=== PATIENT | male | born 1965 | race African-American/Black ===

== ENCOUNTER 2019-06-05 22:15 | Emergency (ER) | payer OTHER ==
[~2019-06-05] VITALS: Ht 185.4 cm; Wt 100.0 kg
[2019-06-05] MEDS ORDERED: ACETAMINOPHEN 500 MG TABLET PO ONE (22:45)
[2019-06-05] MEDS ORDERED: IBUPROFEN 600 MG TABLET PO ONE (22:45)
[2019-06-06 00:02] VITALS: BP 132/86
== END 2019-06-06 00:19 | disposition home or self-care (01) ==
LOC: EDBD → EMS 22:17 → EDBD 22:17 → EMS 06-06 00:19
DX: N50.811 Right testicular pain (principal); N50.812 Left testicular pain; I10 Essential (primary) hypertension; F17.210 Nicotine dependence, cigarettes, uncomplicated
CPT/HCPCS: 76870; 99406

== ENCOUNTER 2019-06-22 01:54 | Inpatient (IN) | payer OTHER ==
[~2019-06-22] VITALS: Ht 190.5 cm; Wt 95.5 kg
[~2019-06-22 01:54] MED LIST: NITROGLYCERIN 0.4 MG SUBLINGUAL TABLET #25 SL ONE
[2019-06-22 02:40] LABS: BASOPHILS % (AUTO) 1.9 % (0.0-2.0); EOSINOPHILS % (AUTO) 4.4 % (1.0-6.0); HEMATOCRIT 42.4 % (41-53); HEMOGLOBIN 13.9 g/dL (13.5-17.5); LYMPHOCYTES % (AUTO) 40.2 % (22.0-44.0); MEAN CORPUSCULAR HEMOGLOBIN 27.1 pg (26.0-34.0); MEAN CORPUSCULAR HGB CONC 32.7 G/dL (31.0-37.0); MEAN CORPUSCULAR VOLUME 83 fL (80-100); MONOCYTES # (AUTO) 0.4 K/uL (0.1-1.0); NEUTROPHILS # (AUTO) 2.2 K/uL (1.8-7.7); NEUTROPHILS % (AUTO) 44.5 % (40.0-70.0); PLATELET COUNT (AUTO) 344 K/uL (150-450); RED CELL DISTRIBUTION WIDTH 14.1 % (11.5-14.5)
[2019-06-22 02:46] LABS: ANION GAP 7 mmol/L (8-16); CALCIUM, TOTAL 8.7 mg/dL (8.8-10.5); CARBON DIOXIDE 28 mmol/L (22-29); CHLORIDE 103 mmol/L (98-107); CREATININE 1.21 mg/dL (0.60-1.30); GLOMERULAR FILTR. RATE CALC > 60 mL/min (>60); GLUCOSE,RANDOM 96 mg/dL (70-110); POTASSIUM 3.8 mmol/L (3.5-5.1); SODIUM SERUM 138 mmol/L (136-145); UREA NITROGEN, BLOOD 17 mg/dL (7-18)
[2019-06-22 02:47] LABS: PROTHROMBIN TIME 10.4 SEC (9.4-11.6)
[2019-06-22 02:57] LABS: B-TYPE NATRIURETIC PEPTIDE 9 pg/mL (0-100)
[2019-06-22 03:09] LABS: ALANINE AMINOTRANSFERASE 25 U/L (12-78); ALBUMIN 3.8 g/dL (3.4-5.0); ALKALINE PHOSPHATASE 84 U/L (46-116); ASPARTATE AMINOTRANSFERASE 24 U/L (15-37); BILIRUBIN,TOTAL 0.3 mg/dL (0.1-1.0); CREATINE KINASE, TOTAL ONLY 612 U/L (39-308); TOTAL PROTEIN, SERUM 7.3 g/dL (6.4-8.2)
[2019-06-22] MEDS ORDERED: ONDANSETRON HCL 4 MG/2 ML VIAL IVP PRN ×2 (03:45→08:00)
[2019-06-22] MEDS ORDERED: NITROGLYCERIN 2% (1 GM=INCH) PACKET TP ONE (03:45)
[2019-06-22] MEDS ORDERED: ACETAMINOPHEN 325 MG TABLET PO PRN ×2 (03:45→08:00)
[2019-06-22 07:21] VITALS: BP 169/88
[2019-06-22] MEDS ORDERED: HEPARIN SODIUM,PORCINE 5,000 UNITS/ML VIAL SQ SCH (08:00)
[2019-06-22] MEDS ORDERED: HYDROCODONE/ACETAMINOPHEN 5-325 MG TABLET PO PRN (08:00)
[2019-06-22] MEDS ORDERED: MAGNESIUM HYDROXIDE SUSPENSION 30 ML UDCUP PO PRN (08:00)
[2019-06-22] MEDS ORDERED: BISACODYL 10 MG RECTAL RECTAL SUPPOSITORY PR PRN (08:00)
[2019-06-22] MEDS ORDERED: MORPHINE SULFATE 2 MG/ML SYRINGE IVP PRN (08:00)
[2019-06-22] MEDS ORDERED: ZOLPIDEM TARTRATE 5 MG TABLET PO PRN (08:00)
[2019-06-22] MEDS ORDERED: DOCUSATE SODIUM 100 MG CAPSULE PO SCH (09:00)
[2019-06-22] MEDS ORDERED: ASPIRIN 81 MG CHEWABLE TABLET PO SCH (09:00)
[2019-06-22] MEDS ORDERED: PANTOPRAZOLE SODIUM 40 MG DR TABLET PO SCH (09:00)
[2019-06-22] MEDS ORDERED: [UNRECOGNIZED DRUG - REMARK] PO (22:19)
== END 2019-06-22 08:20 | disposition left against medical advice (07) | DRG 198 ==
LOC: EMS 01:55 → 5N 05:08
PROVIDERS: ADMIT Internal Medicine; ATTEND Internal Medicine
DX: I24.9 Acute ischemic heart disease, unspecified (principal); F17.210 Nicotine dependence, cigarettes, uncomplicated; I10 Essential (primary) hypertension; Z53.29 Procedure and treatment not carried out because of patient's decision for other reasons; Z82.49 Family history of ischemic heart disease and other diseases of the circulatory system; Z87.442 Personal history of urinary calculi; Z93.3 Colostomy status
CPT/HCPCS: 93005

== ENCOUNTER 2019-06-22 21:55 | Emergency (ER) | payer OTHER ==
[~2019-06-22] VITALS: Ht 190.5 cm; Wt 95.5 kg
[2019-06-22] MEDS ORDERED: [UNRECOGNIZED DRUG - REMARK] PO (22:19)
[2019-06-22 23:14] LABS: BASOPHILS % (AUTO) 1.5 % (0.0-2.0); EOSINOPHILS % (AUTO) 3.4 % (1.0-6.0); HEMATOCRIT 39.4 % (41-53); HEMOGLOBIN 12.9 g/dL (13.5-17.5); LYMPHOCYTES # (AUTO) 1.7 K/uL (1.0-4.8); LYMPHOCYTES % (AUTO) 33.8 % (22.0-44.0); MEAN CORPUSCULAR HEMOGLOBIN 26.9 pg (26.0-34.0); MEAN CORPUSCULAR HGB CONC 32.7 G/dL (31.0-37.0); MEAN CORPUSCULAR VOLUME 82 fL (80-100); MONOCYTES # (AUTO) 0.3 K/uL (0.1-1.0); MONOCYTES % (AUTO) 5.9 % (2.0-9.0); NEUTROPHILS # (AUTO) 2.9 K/uL (1.8-7.7); NEUTROPHILS % (AUTO) 55.4 % (40.0-70.0); PLATELET COUNT (AUTO) 358 K/uL (150-450); RED BLOOD CELL COUNT(AUTO) 4.79 MIL/uL (4.50-5.90); RED CELL DISTRIBUTION WIDTH 14.4 % (11.5-14.5)
[2019-06-22 23:32] LABS: ANION GAP 8 mmol/L (8-16); CALCIUM, TOTAL 8.9 mg/dL (8.8-10.5); CARBON DIOXIDE 27 mmol/L (22-29); CHLORIDE 102 mmol/L (98-107); CREATININE 1.32 mg/dL (0.60-1.30); GLOMERULAR FILTR. RATE CALC > 60 mL/min (>60); GLUCOSE,RANDOM 104 mg/dL (70-110); POTASSIUM 3.7 mmol/L (3.5-5.1); SODIUM SERUM 137 mmol/L (136-145); UREA NITROGEN, BLOOD 14 mg/dL (7-18)
[2019-06-22 23:37] LABS: ALANINE AMINOTRANSFERASE 23 U/L (12-78); ALBUMIN 3.8 g/dL (3.4-5.0); ALKALINE PHOSPHATASE 79 U/L (46-116); ASPARTATE AMINOTRANSFERASE 20 U/L (15-37); BILIRUBIN,TOTAL 0.2 mg/dL (0.1-1.0); TOTAL PROTEIN, SERUM 7.1 g/dL (6.4-8.2)
[2019-06-22 23:45] VITALS: BP 195/121
== END 2019-06-23 00:02 | disposition home or self-care (01) ==
LOC: EMS 21:57
DX: R07.89 Other chest pain (principal); I10 Essential (primary) hypertension; F17.210 Nicotine dependence, cigarettes, uncomplicated; Z98.890 Other specified postprocedural states; Z79.899 Other long term (current) drug therapy
CPT/HCPCS: 93005; 99406

== ENCOUNTER 2019-06-23 06:38 | Emergency (ER) | payer SELFPAY ==
[~2019-06-23] VITALS: Ht 190.5 cm; Wt 95.5 kg
[~2019-06-23 06:38] MED LIST changes: -NITROGLYCERIN 0.4 MG SUBLINGUAL TABLET #25 SL ONE; +[UNRECOGNIZED DRUG - REMARK] PO
[2019-06-23 06:50] VITALS: BP 164/101
== END 2019-06-23 08:28 | disposition left against medical advice (07) ==
LOC: EMS 06:38
DX: R07.9 Chest pain, unspecified (principal); Z53.21 Procedure and treatment not carried out due to patient leaving prior to being seen by health care provider

== ENCOUNTER 2019-06-25 15:10 | Emergency (ER) | payer OTHER ==
[~2019-06-25] VITALS: Ht 190.5 cm; Wt 95.5 kg
[2019-06-25] MEDS ORDERED: [UNRECOGNIZED DRUG - REMARK] PO (15:17)
[2019-06-25] MEDS ORDERED: ASPIRIN 81 MG CHEWABLE TABLET PO ONE (16:00)
[2019-06-25 16:27] LABS: HEMOGLOBIN 14.2 g/dL (13.5-17.5); MEAN CORPUSCULAR HEMOGLOBIN 26.6 pg (26.0-34.0); MONOCYTES # (AUTO) 0.4 K/uL (0.1-1.0); NEUTROPHILS # (AUTO) 3.4 K/uL (1.8-7.7)
[2019-06-25 16:37] LABS: EOSINOPHILS % (AUTO) 1.9 % (1.0-6.0); HEMATOCRIT 44.3 % (41-53); LYMPHOCYTES # (AUTO) 1.5 K/uL (1.0-4.8); LYMPHOCYTES % (AUTO) 26.6 % (22.0-44.0); MEAN CORPUSCULAR VOLUME 83 fL (80-100); MONOCYTES % (AUTO) 7.5 % (2.0-9.0); PLATELET COUNT (AUTO) 408 K/uL (150-450); RED BLOOD CELL COUNT(AUTO) 5.32 MIL/uL (4.50-5.90); RED CELL DISTRIBUTION WIDTH 14.3 % (11.5-14.5)
[2019-06-25 16:40] LABS: ANION GAP 11 mmol/L (8-16); CALCIUM, TOTAL 8.9 mg/dL (8.8-10.5); CARBON DIOXIDE 28 mmol/L (22-29); CHLORIDE 105 mmol/L (98-107); GLOMERULAR FILTR. RATE CALC > 60 mL/min (>60); GLUCOSE,RANDOM 97 mg/dL (70-110); POTASSIUM 3.6 mmol/L (3.5-5.1); SODIUM SERUM 144 mmol/L (136-145); UREA NITROGEN, BLOOD 17 mg/dL (7-18)
[2019-06-25 16:41] LABS: PROTHROMBIN TIME 10.4 SEC (9.4-11.6)
[2019-06-25 17:03] LABS: B-TYPE NATRIURETIC PEPTIDE 18 pg/mL (0-100)
[2019-06-25 17:05] LABS: ALANINE AMINOTRANSFERASE 16 U/L (12-78); ALBUMIN 3.9 g/dL (3.4-5.0); ALKALINE PHOSPHATASE 76 U/L (46-116); ASPARTATE AMINOTRANSFERASE 13 U/L (15-37); BILIRUBIN,TOTAL 0.5 mg/dL (0.1-1.0); CREATINE KINASE, TOTAL ONLY 236 U/L (39-308); TOTAL PROTEIN, SERUM 7.4 g/dL (6.4-8.2)
[2019-06-25 18:55] VITALS: BP 162/76
== END 2019-06-25 19:06 | disposition home or self-care (01) ==
LOC: EMS 15:12
DX: R07.89 Other chest pain (principal); I10 Essential (primary) hypertension; F17.210 Nicotine dependence, cigarettes, uncomplicated
CPT/HCPCS: 93005; 99406

== ENCOUNTER 2019-06-26 00:07 | Emergency (ER) | payer OTHER ==
[~2019-06-26] VITALS: Ht 190.5 cm; Wt 95.5 kg
[~2019-06-26 00:07] MED LIST changes: +[UNRECOGNIZED DRUG - REMARK] PO
[2019-06-26 02:13] LABS: BASOPHILS % (AUTO) 0.7 % (0.0-2.0); HEMOGLOBIN 13.7 g/dL (13.5-17.5); LYMPHOCYTES # (AUTO) 1.3 K/uL (1.0-4.8); LYMPHOCYTES % (AUTO) 26.1 % (22.0-44.0); MEAN CORPUSCULAR HEMOGLOBIN 26.5 pg (26.0-34.0); MEAN CORPUSCULAR HGB CONC 31.8 G/dL (31.0-37.0); MEAN CORPUSCULAR VOLUME 83 fL (80-100); MONOCYTES # (AUTO) 0.4 K/uL (0.1-1.0); MONOCYTES % (AUTO) 8.4 % (2.0-9.0); NEUTROPHILS # (AUTO) 3.1 K/uL (1.8-7.7); NEUTROPHILS % (AUTO) 63.8 % (40.0-70.0); PLATELET COUNT (AUTO) 371 K/uL (150-450); RED BLOOD CELL COUNT(AUTO) 5.16 MIL/uL (4.50-5.90); RED CELL DISTRIBUTION WIDTH 14.2 % (11.5-14.5)
[2019-06-26 02:29] LABS: PROTHROMBIN TIME 10.6 SEC (9.4-11.6)
[2019-06-26] MEDS ORDERED: SODIUM CHLORIDE 0.9% 1,000 ML IV ONE (02:30)
[2019-06-26 03:06] LABS: ANION GAP 12 mmol/L (8-16); CALCIUM, TOTAL 9.3 mg/dL (8.8-10.5); CARBON DIOXIDE 28 mmol/L (22-29); CHLORIDE 103 mmol/L (98-107); CREATININE 1.28 mg/dL (0.60-1.30); GLOMERULAR FILTR. RATE CALC > 60 mL/min (>60); GLUCOSE,RANDOM 101 mg/dL (70-110); POTASSIUM 3.4 mmol/L (3.5-5.1); SODIUM SERUM 143 mmol/L (136-145); UREA NITROGEN, BLOOD 17 mg/dL (7-18)
[2019-06-26 03:32] LABS: ALANINE AMINOTRANSFERASE 20 U/L (12-78); ALKALINE PHOSPHATASE 74 U/L (46-116); ASPARTATE AMINOTRANSFERASE 13 U/L (15-37); BILIRUBIN,TOTAL 0.6 mg/dL (0.1-1.0); CREATINE KINASE, TOTAL ONLY 238 U/L (39-308); LIPASE 73 U/L (73-393); TOTAL PROTEIN, SERUM 7.3 g/dL (6.4-8.2)
[2019-06-26] MEDS ORDERED: ONDANSETRON HCL 4 MG/2 ML VIAL IVP PRN ×2 (04:30→07:15)
[2019-06-26] MEDS ORDERED: ASPIRIN 325 MG TABLET PO ONE (04:30)
[2019-06-26] MEDS ORDERED: ACETAMINOPHEN 325 MG TABLET PO PRN ×2 (04:30→07:15)
[2019-06-26] MEDS ORDERED: 0.9% SODIUM CHLORIDE 10 ML SYRINGE IVP PRN ×2 (04:30→07:15)
[2019-06-26 06:00] VITALS: BP 163/99
[2019-06-26] MEDS ORDERED: LISINOPRIL 10 MG TABLET PO ONE (07:15)
[2019-06-26] MEDS ORDERED: ZOLPIDEM TARTRATE 5 MG TABLET PO PRN (07:15)
[2019-06-26] MEDS ORDERED: DOCUSATE SODIUM 100 MG CAPSULE PO SCH (09:00)
[2019-06-26] MEDS ORDERED: PANTOPRAZOLE SODIUM 40 MG DR TABLET PO SCH (09:00)
[2019-06-26] MEDS ORDERED: METOPROLOL TARTRATE 25 MG TABLET PO SCH (09:00)
[2019-06-26] MEDS ORDERED: ENOXAPARIN SODIUM 40 MG/0.4 ML PF SYRINGE SQ SCH (09:00)
== END 2019-06-26 08:00 | disposition left against medical advice (07) ==
LOC: EMS 00:09
DX: R07.89 Other chest pain (principal); R06.02 Shortness of breath; R10.33 Periumbilical pain; I10 Essential (primary) hypertension; F17.210 Nicotine dependence, cigarettes, uncomplicated; Z98.890 Other specified postprocedural states
CPT/HCPCS: 36415; 71046; 80053; 82550; 83690; 83735; 84484; 85025; 85610; 93005; 99285; J7030; J1650

== ENCOUNTER 2020-01-29 22:20 | Inpatient (IN) | payer OTHER ==
[~2020-01-29] VITALS: Ht 190.5 cm; Wt 93.1 kg
[~2020-01-29 22:20] MED LIST changes: -[UNRECOGNIZED DRUG - REMARK] PO
[2020-01-30 00:18] LABS: EOSINOPHILS % (AUTO) 3.2 % (1.0-6.0); HEMATOCRIT 42.8 % (41-53); HEMOGLOBIN 13.9 g/dL (13.5-17.5); LYMPHOCYTES # (AUTO) 1.2 K/uL (1.0-4.8); LYMPHOCYTES % (AUTO) 18.1 % (22.0-44.0); MEAN CORPUSCULAR HEMOGLOBIN 26.5 pg (26.0-34.0); MEAN CORPUSCULAR HGB CONC 32.4 G/dL (31.0-37.0); MEAN CORPUSCULAR VOLUME 82 fL (80-100); MONOCYTES # (AUTO) 0.4 K/uL (0.1-1.0); MONOCYTES % (AUTO) 6.8 % (2.0-9.0); NEUTROPHILS # (AUTO) 4.6 K/uL (1.8-7.7); NEUTROPHILS % (AUTO) 70.9 % (40.0-70.0); PLATELET COUNT (AUTO) 414 K/uL (150-450); RED BLOOD CELL COUNT(AUTO) 5.24 MIL/uL (4.50-5.90); RED CELL DISTRIBUTION WIDTH 14.6 % (11.5-14.5)
[2020-01-30] MEDS ORDERED: HYDR25TA PO (00:21)
[2020-01-30] MEDS ORDERED: GABA-1181 PO (00:21)
[2020-01-30] MEDS ORDERED: LISI40TA4 PO (00:21)
[2020-01-30 00:29] LABS: ANION GAP 9 mmol/L (8-16); CALCIUM, TOTAL 9.6 mg/dL (8.8-10.5); CARBON DIOXIDE 30 mmol/L (22-29); CHLORIDE 104 mmol/L (98-107); CREATININE 1.26 mg/dL (0.60-1.30); GLOMERULAR FILTR. RATE CALC > 60 mL/min (>60); GLUCOSE,RANDOM 110 mg/dL (70-110); POTASSIUM 3.5 mmol/L (3.5-5.1); SODIUM SERUM 143 mmol/L (136-145); UREA NITROGEN, BLOOD 15 mg/dL (7-18)
[2020-01-30 00:44] LABS: PROTHROMBIN TIME 10.7 SEC (9.4-11.6)
[2020-01-30] MEDS ORDERED: NITROGLYCERIN 0.4 MG SUBLINGUAL TABLET #25 SL ONE (00:45)
[2020-01-30 00:54] LABS: ALANINE AMINOTRANSFERASE 22 U/L (12-78); ALBUMIN 4.2 g/dL (3.4-5.0); ALKALINE PHOSPHATASE 82 U/L (46-116); ASPARTATE AMINOTRANSFERASE 23 U/L (15-37); BILIRUBIN,TOTAL 0.7 mg/dL (0.1-1.0); CREATINE KINASE, TOTAL ONLY 683 U/L (39-308); TOTAL PROTEIN, SERUM 8.2 g/dL (6.4-8.2)
[2020-01-30 01:07] LABS: B-TYPE NATRIURETIC PEPTIDE 8 pg/mL (0-100)
[2020-01-30] MEDS ORDERED: SODIUM CHLORIDE 0.9% 1,000 ML IV ONE (01:45)
[2020-01-30] MEDS ORDERED: MORPHINE SULFATE 4 MG/ML SYRINGE IVP ONE (02:00)
[2020-01-30] MEDS ORDERED: ASPIRIN 81 MG CHEWABLE TABLET PO ONE (02:00)
[2020-01-30] MEDS ORDERED: 0.9% SODIUM CHLORIDE 10 ML SYRINGE IVP PRN ×2 (02:00→07:15)
[2020-01-30] MEDS ORDERED: ONDANSETRON HCL 4 MG/2 ML VIAL IVP PRN ×2 (02:00→07:15)
[2020-01-30] MEDS ORDERED: ACETAMINOPHEN 325 MG TABLET PO PRN ×2 (02:00→07:15)
[2020-01-30 02:50] VITALS: BP 149/83
[2020-01-30] MEDS ORDERED: MAGNESIUM HYDROXIDE SUSPENSION 30 ML UDCUP PO PRN (07:15)
[2020-01-30] MEDS ORDERED: MORPHINE SULFATE 2 MG/ML SYRINGE IVP PRN (07:15)
[2020-01-30] MEDS ORDERED: OxyCODONE HCL/ACETAMINOPHEN 5-325 MG TABLET PO PRN ×2 (07:15)
[2020-01-30] MEDS ORDERED: NITROGLYCERIN 2% (1 GM=INCH) PACKET TP PRN (07:15)
[2020-01-30 07:35] VITALS: BP 165/95
[2020-01-30] MEDS: NICOTINE 21 MG/24 HOUR PATCH TD SCH (08:00)
[2020-01-30] MEDS: HEPARIN SODIUM,PORCINE 5,000 UNITS/ML VIAL SQ SCH ×2 (08:00→16:00)
[2020-01-30] MEDS: LISINOPRIL 20 MG TABLET PO SCH (08:15)
[2020-01-30] MEDS: HYDROCHLOROTHIAZIDE 25 MG TABLET PO SCH (08:17)
[2020-01-30] MEDS: ASPIRIN 325 MG TABLET PO SCH (08:19)
[2020-01-30] MEDS: SODIUM CHLORIDE 0.9% 1,000 ML IV SCH ×2 (08:19→18:39)
[2020-01-30] MEDS: FAMOTIDINE 10 MG/ML 2 ML VIAL IVP SCH (08:20)
[2020-01-30] MEDS: DOCUSATE SODIUM 100 MG CAPSULE PO SCH ×2 (08:20→21:00)
[2020-01-30 11:21] VITALS: BP 166/85
[2020-01-30 16:02] VITALS: BP 153/90
[2020-01-30 18:56] LABS: AMPHET/METH SCREEN,URINE POSITIVE (NEGATIVE); BARBITURATE SCREEN, URINE NEGATIVE (NEGATIVE); BENZODIAZEPINES SCREEN,URINE NEGATIVE (NEGATIVE); CANNABINOID SCREEN,URINE NEGATIVE (NEGATIVE); COCAINE SCREEN,URINE NEGATIVE (NEGATIVE); METHADONE SCREEN, URINE NEGATIVE (NEGATIVE); OPIATE SCREEN,URINE POSITIVE (NEGATIVE); PHENCYCLIDINE SCREEN,URINE NEGATIVE (NEGATIVE)
[2020-01-30 20:08] VITALS: BP 132/84
[2020-01-31 00:09] VITALS: BP 152/91
[2020-01-31] MEDS: SODIUM CHLORIDE 0.9% 1,000 ML IV SCH (03:20)
[2020-01-31 05:31] VITALS: BP 164/101
[2020-01-31] MEDS: HEPARIN SODIUM,PORCINE 5,000 UNITS/ML VIAL SQ SCH ×2 (07:52)
[2020-01-31 08:00] VITALS: BP 153/93
[2020-01-31] MEDS: ASPIRIN 325 MG TABLET PO SCH (08:31)
[2020-01-31] MEDS: LISINOPRIL 20 MG TABLET PO SCH (08:31)
[2020-01-31] MEDS: HYDROCHLOROTHIAZIDE 25 MG TABLET PO SCH (08:32)
[2020-01-31] MEDS: FAMOTIDINE 10 MG/ML 2 ML VIAL IVP SCH (08:34)
[2020-01-31] MEDS: DOCUSATE SODIUM 100 MG CAPSULE PO SCH (08:34)
[2020-01-31] MEDS: NICOTINE 21 MG/24 HOUR PATCH TD SCH (09:00)
== END 2020-01-31 11:50 | disposition left against medical advice (07) | DRG 812 ==
LOC: EMS 22:21 → 5S 01-30 01:49
PROVIDERS: ADMIT Internal Medicine; ATTEND Internal Medicine
DX: T43.621A Poisoning by amphetamines, accidental (unintentional), initial encounter (principal); I24.8 Other forms of acute ischemic heart disease; F15.90 Other stimulant use, unspecified, uncomplicated; F17.210 Nicotine dependence, cigarettes, uncomplicated; I10 Essential (primary) hypertension; R20.0 Anesthesia of skin; Z82.49 Family history of ischemic heart disease and other diseases of the circulatory system; Z87.442 Personal history of urinary calculi; Z93.3 Colostomy status
CPT/HCPCS: 80307; 93005; 93306; G0480; J1644; J2270; J3490; J7030

== ENCOUNTER 2020-03-12 17:10 | Emergency (ER) | payer SELFPAY ==
[~2020-03-12] VITALS: Ht 182.9 cm; Wt 100.0 kg
[~2020-03-12 17:10] MED LIST changes: +GABA-1181 PO; +HYDR25TA PO; +LISI40TA4 PO; -[UNRECOGNIZED DRUG - REMARK] PO
[2020-03-12 17:13] VITALS: BP 184/122
== END 2020-03-12 20:15 | disposition left against medical advice (07) ==
LOC: EMS 17:11
DX: R06.02 Shortness of breath (principal); Z53.21 Procedure and treatment not carried out due to patient leaving prior to being seen by health care provider

== ENCOUNTER 2020-11-01 04:06 | Emergency (ER) | payer OTHER ==
[~2020-11-01] VITALS: Ht 190.5 cm; Wt 100.0 kg
[~2020-11-01 04:06] MED LIST changes: -LISI40TA4 PO; +LISI40TA9 PO
[2020-11-01 06:39] LABS: BASOPHILS % (AUTO) 3.2 % (0.0-2.0); HEMATOCRIT 43.1 % (41-53); HEMOGLOBIN 13.8 g/dL (13.5-17.5); LYMPHOCYTES # (AUTO) 1.6 K/uL (1.0-4.8); LYMPHOCYTES % (AUTO) 27.4 % (22.0-44.0); MEAN CORPUSCULAR HGB CONC 32.1 G/dL (31.0-37.0); MEAN CORPUSCULAR VOLUME 84 fL (80-100); MONOCYTES # (AUTO) 0.4 K/uL (0.1-1.0); MONOCYTES % (AUTO) 7.1 % (2.0-9.0); NEUTROPHILS # (AUTO) 3.6 K/uL (1.8-7.7); NEUTROPHILS % (AUTO) 60.3 % (40.0-70.0); PLATELET COUNT (AUTO) 316 K/uL (150-450); RED BLOOD CELL COUNT(AUTO) 5.13 MIL/uL (4.50-5.90); RED CELL DISTRIBUTION WIDTH 14.8 % (11.5-14.5)
[2020-11-01] MEDS ORDERED: LORazepam 1 MG TABLET PO ONE (06:45)
[2020-11-01] MEDS ORDERED: ASPIRIN 81 MG CHEWABLE TABLET PO ONE (06:45)
[2020-11-01] MEDS ORDERED: NITROGLYCERIN 0.4 MG SUBLINGUAL TABLET #25 SL ONE (07:00)
[2020-11-01 07:58] LABS: ANION GAP 9 mmol/L (8-16); CALCIUM, TOTAL 9.4 mg/dL (8.8-10.5); CARBON DIOXIDE 27 mmol/L (22-29); CHLORIDE 103 mmol/L (98-107); CREATININE 1.37 mg/dL (0.60-1.30); GLOMERULAR FILTR. RATE CALC > 60 mL/min (>60); GLUCOSE,RANDOM 91 mg/dL (70-110); POTASSIUM 4.3 mmol/L (3.5-5.1); SODIUM SERUM 139 mmol/L (136-145); UREA NITROGEN, BLOOD 12 mg/dL (7-18)
[2020-11-01] MEDS ORDERED: CloNIDine HCL 0.1 MG TABLET PO ONE ×3 (08:00→08:45)
[2020-11-01 08:03] LABS: ALANINE AMINOTRANSFERASE 24 U/L (12-78); ALBUMIN 3.9 g/dL (3.4-5.0); ALKALINE PHOSPHATASE 80 U/L (46-116); ASPARTATE AMINOTRANSFERASE 23 U/L (15-37); BILIRUBIN,TOTAL 0.3 mg/dL (0.1-1.0); TOTAL PROTEIN, SERUM 7.5 g/dL (6.4-8.2)
[2020-11-01] MEDS ORDERED: AZITHROMYCIN 500 MG TABLET PO ONE (09:00)
[2020-11-01] MEDS ORDERED: IBUPROFEN 600 MG TABLET PO ONE (09:00)
[2020-11-01 09:03] VITALS: BP 194/120
[2020-11-01 09:14] LABS: COVID AG,FIA SOURCE NASOPHARYNGEAL
== END 2020-11-01 09:05 | disposition left against medical advice (07) ==
LOC: EMS 04:15
DX: J18.9 Pneumonia, unspecified organism (principal); I10 Essential (primary) hypertension; F17.210 Nicotine dependence, cigarettes, uncomplicated; Z20.822 Contact with and (suspected) exposure to COVID-19; Z79.899 Other long term (current) drug therapy
CPT/HCPCS: 36415; 71045; 80053; 83880; 84484; 85025; 87426; 93005; 99285; A9575